=== PATIENT | male | born 1985 | race Caucasian/White ===

== ENCOUNTER 2020-03-22 20:46 | Inpatient (IN) | payer OTHER, MEDICAID, SELFPAY ==
[~2020-03-22] VITALS: Ht 185.4 cm; Wt 188.2 kg
[~2020-03-22 20:46] MED LIST: GABA-531 PO; METO50TA7 PO; METO5TAB86 PO; OMEP40CA13 PO; PHE25 PO; PRED20TA PO; RIVA15TA PO; SAN100 PO; TRAM50TA92 PO
[2020-03-22 21:17] VITALS: BP_SYST 197
[2020-03-22] MEDS ORDERED: ASPIRIN 81 MG TABLET(ECOTRIN) PO ONE (21:30)
[2020-03-22] MEDS ORDERED: METOPROLOL TARTRATE 5 MG/5 ML VIAL IVP ONE ×3 (21:30→23:30)
[2020-03-22 21:45] LABS: BASOPHILS % (AUTO) 0.3 % (0.0-2.0); EOSINOPHILS % (AUTO) 0.2 % (0.0-4.0); HEMATOCRIT 35.9 % (36-54); HEMOGLOBIN 11.2 g/dL (14.0-18.0); LYMPHOCYTES # (AUTO) 1.1 K/uL (1.0-5.5); LYMPHOCYTES % (AUTO) 9.3 % (20.5-51.5); MEAN CORPUSCULAR HEMOGLOBIN 23 pg (27-31); MEAN CORPUSCULAR HGB CONC 31 % (32-36); MEAN CORPUSCULAR VOLUME 73 fL (79.0-98.0); MONOCYTES # (AUTO) 0.9 K/uL (0.0-1.0); MONOCYTES % (AUTO) 7.7 % (1.7-9.3); NEUTROPHILS # (AUTO) 9.9 K/uL (1.8-7.7); NEUTROPHILS % (AUTO) 82.5 % (40.0-70.0); PLATELET COUNT (AUTO) 350 K/uL (130-430); RED CELL DISTRIBUTION WIDTH 18.6 % (9.0-15.0)
[2020-03-22 21:51] LABS: CALCIUM 8.8 mg/dL (8.4-11.0); CREATININE 1.29 mg/dL (0.55-1.30); POTASSIUM 4.4 mmol/L (3.5-5.1)
[2020-03-22 22:09] LABS: ALBUMIN 3.5 g/dL (3.4-4.8); BILIRUBIN,DIRECT 0.5 mg/dL (0.0-0.3); TOTAL BILIRUBIN 0.6 mg/dL (0.0-1.0)
[2020-03-23] MEDS ORDERED: HEPARIN SODIUM,PORCINE 3000 UNITS/0.6 ML BOLUS IVP PRN (00:15)
[2020-03-23] MEDS ORDERED: HEPARIN 25,000 UNITS in 250 ML PREMIX IV PRN (00:15)
[2020-03-23] MEDS ORDERED: HEPARIN SODIUM,PORCINE 2000 UNITS/0.4 ML BOLUS IVP PRN (00:15)
[2020-03-23] MEDS ORDERED: NITROGLYCERIN 0.4 MG TAB.SUBL SL ONE ×2 (00:58→01:00)
[2020-03-23] MEDS ORDERED: cycloSPORINE 100 MG CAPSULE PO SCH (09:00)
[2020-03-23] MEDS ORDERED: OMEPRAZOLE Non-Formulary 20 MG CAPSULE.DR PO SCH (09:00)
[2020-03-23 09:10] LABS: PROTHROMBIN TIME 10.2 SECS (9.5-12.5)
[2020-03-23] MEDS ORDERED: PANTOPRAZOLE SODIUM 40 MG TAB ONE (09:31)
[2020-03-23] MEDS ORDERED: CYCLOSPORINE MODIFIED 50 MG PO SCH (09:45)
[2020-03-23] MEDS: predniSONE 20 MG TABLET PO SCH (10:45)
[2020-03-23] MEDS: PANTOPRAZOLE SODIUM 40 MG TAB PO SCH (10:45)
[2020-03-23] MEDS: CYCLOSPORINE MODIFIED 50 MG PO SCH (10:46)
[2020-03-23] MEDS ORDERED: HYDROcodone/ACETAMIN 5-325 MG TAB (NORCO/ VICODIN) PO PRN (11:00)
[2020-03-23] MEDS ORDERED: NALOXONE HCL 0.4 MG/ML AMP (NARCAN) IVP PRN (11:00)
[2020-03-23] MEDS ORDERED: HYDROcodone/ACETAMIN 5-325 MG TAB (NORCO/ VICODIN) ONE (11:27)
[2020-03-23] MEDS: METOPROLOL SUCCINATE 50 MG TAB.SR.24H (TOPROL XL) PO SCH (13:36)
[2020-03-23] MEDS ORDERED: GABAPENTIN 300 MG CAPSULE ONE (14:30)
[2020-03-23] MEDS: GABAPENTIN 300 MG CAPSULE PO SCH ×2 (14:35→22:32)
[2020-03-23] MEDS ORDERED: METOPROLOL TARTRATE 50 MG TABLET PO ONE (14:45)
[2020-03-23] MEDS ORDERED: METOPROLOL TARTRATE 25 MG TABLET ONE (15:13)
[2020-03-23] MEDS ORDERED: IBUPROFEN 800 MG TABLET ONE (15:42)
[2020-03-23] MEDS ORDERED: *HEPARIN PER PHARMACY XX PRN (23:45)
[2020-03-24 04:35] LABS: PROTHROMBIN TIME 10.2 SECS (9.5-12.5)
[2020-03-24] MEDS: GABAPENTIN 300 MG CAPSULE PO SCH ×3 (06:00→21:56)
[2020-03-24] MEDS ORDERED: LIALDA PO (06:08)
[2020-03-24] MEDS ORDERED: IBUPROFEN 400 MG TABLET PO PRN (06:30)
[2020-03-24] MEDS ORDERED: DILTIAZEM HCL 125 MG/25 ML VIAL IV ONE ×2 (06:44→08:38)
[2020-03-24 07:02] LABS: BASOPHILS # (AUTO) 0.1 K/uL (0.0-0.2); BASOPHILS % (AUTO) 0.8 % (0.0-2.0); EOSINOPHILS % (AUTO) 0.2 % (0.0-4.0); HEMATOCRIT 39.3 % (36-54); HEMOGLOBIN 12.1 g/dL (14.0-18.0); LYMPHOCYTES % (AUTO) 25.9 % (20.5-51.5); MEAN CORPUSCULAR HEMOGLOBIN 23 pg (27-31); MEAN CORPUSCULAR HGB CONC 31 % (32-36); MEAN CORPUSCULAR VOLUME 74 fL (79.0-98.0); MONOCYTES # (AUTO) 1.1 K/uL (0.0-1.0); MONOCYTES % (AUTO) 9.7 % (1.7-9.3); NEUTROPHILS # (AUTO) 7.5 K/uL (1.8-7.7); NEUTROPHILS % (AUTO) 63.4 % (40.0-70.0); PLATELET COUNT (AUTO) 416 K/uL (130-430); RED BLOOD CELL COUNT(AUTO) 5.35 MIL/uL (4.2-6.2); RED CELL DISTRIBUTION WIDTH 18.8 % (9.0-15.0); WHITE BLOOD COUNT (AUTO) 11.8 K/uL (4.8-10.8)
[2020-03-24 07:53] LABS: ALBUMIN 3.6 g/dL (3.4-4.8); CALCIUM 9.2 mg/dL (8.4-11.0); CREATININE 1.25 mg/dL (0.55-1.30); POTASSIUM 3.9 mmol/L (3.5-5.1)
[2020-03-24] MEDS: CYCLOSPORINE MODIFIED 100 MG PO SCH ×2 (08:47→21:45)
[2020-03-24] MEDS ORDERED: predniSONE 20 MG TABLET ONE (08:49)
[2020-03-24] MEDS ORDERED: PANTOPRAZOLE SODIUM 40 MG TAB ONE (08:50)
[2020-03-24] MEDS ORDERED: METOPROLOL TARTRATE 25 MG TABLET ONE ×2 (08:51→21:53)
[2020-03-24] MEDS: *LOVENOX 1MG/KG Q12H/PHARMACY XX SCH ×2 (09:00→21:00)
[2020-03-24] MEDS: METOPROLOL SUCCINATE 50 MG TAB.SR.24H (TOPROL XL) PO SCH (09:08)
[2020-03-24] MEDS: CYCLOSPORINE MODIFIED 50 MG PO SCH ×2 (09:08→21:46)
[2020-03-24] MEDS: PANTOPRAZOLE SODIUM 40 MG TAB PO SCH (09:08)
[2020-03-24] MEDS: predniSONE 20 MG TABLET PO SCH (09:08)
[2020-03-24] MEDS ORDERED: MORPHINE 2 MG/ML INJ. SYRINGE ONE ×2 (09:15→22:00)
[2020-03-24] MEDS: MORPHINE 2 MG/ML INJ. SYRINGE IVP PRN ×2 (09:32→22:02)
[2020-03-24] MEDS ORDERED: METOPROLOL TARTRATE 25 MG TABLET PO ONE (10:30)
[2020-03-24] MEDS ORDERED: ENOXAPARIN SODIUM 60 MG/0.6 ML SYRINGE SUBCUT ONE (12:30)
[2020-03-24] MEDS ORDERED: AMIODARONE HCL 200 MG TABLET ONE (12:34)
[2020-03-24] MEDS ORDERED: AMIODARONE HCL 200 MG TABLET PO ONE (13:00)
[2020-03-24] MEDS: AMIODARONE HCL 200 MG TABLET PO SCH (21:43)
[2020-03-24] MEDS: ENOXAPARIN SODIUM 60 MG/0.6 ML SYRINGE SUBCUT SCH (21:45)
[2020-03-24] MEDS: METOPROLOL TARTRATE 25 MG TABLET PO SCH (21:56)
[2020-03-25] MEDS ORDERED: MORPHINE 2 MG/ML INJ. SYRINGE ONE (03:23)
[2020-03-25] MEDS: MORPHINE 2 MG/ML INJ. SYRINGE IVP PRN (03:37)
[2020-03-25] MEDS: AMIODARONE HCL 200 MG TABLET PO SCH (06:39)
[2020-03-25] MEDS: GABAPENTIN 300 MG CAPSULE PO SCH (07:35)
[2020-03-25] MEDS ORDERED: predniSONE 20 MG TABLET ONE (09:20)
[2020-03-25] MEDS ORDERED: METOPROLOL TARTRATE 25 MG TABLET ONE (09:20)
[2020-03-25] MEDS ORDERED: ENOXAPARIN SODIUM 120 MG/0.8 ML SYRINGE ONE (09:22)
[2020-03-25] MEDS ORDERED: ENOXAPARIN SODIUM 60 MG/0.6 ML SYRINGE ONE (09:22)
[2020-03-25] MEDS: predniSONE 20 MG TABLET PO SCH (09:48)
[2020-03-25] MEDS: CYCLOSPORINE MODIFIED 100 MG PO SCH (09:50)
[2020-03-25] MEDS: CYCLOSPORINE MODIFIED 50 MG PO SCH (09:50)
[2020-03-25] MEDS: METOPROLOL TARTRATE 25 MG TABLET PO SCH (09:50)
[2020-03-25] MEDS: ENOXAPARIN SODIUM 60 MG/0.6 ML SYRINGE SUBCUT SCH (09:51)
[2020-03-25] MEDS ORDERED: PANTOPRAZOLE SODIUM 40 MG TAB ONE (10:00)
[2020-03-25] MEDS: PANTOPRAZOLE SODIUM 40 MG TAB PO SCH (10:04)
[2020-03-25 12:01] VITALS: BP_SYST 169
[2020-03-25] MEDS ORDERED: AMI200 PO (12:17)
[2020-03-25] MEDS: METOPROLOL SUCCINATE 50 MG TAB.SR.24H (TOPROL XL) PO SCH (12:22)
[2020-03-25 12:30] VITALS: BP_SYST 147
[2020-03-25] MEDS ORDERED: AMIODARONE HCL 200 MG TABLET PO SCH (21:00)
== END 2020-03-25 12:30 | disposition home or self-care (01) | DRG 309 ==
LOC: SED 20:46 → SIC 23:44 → STU 03-25 09:38 → SIC 03-25 09:45
PROVIDERS: ADMIT Internal Medicine Hospice and Palliative Medicine; ATTEND Internal Medicine Hospice and Palliative Medicine
DX: I48.0 Paroxysmal atrial fibrillation (principal); K51.90 Ulcerative colitis, unspecified, without complications; Z68.43 Body mass index [BMI] 50.0-59.9, adult; E66.01 Morbid (severe) obesity due to excess calories; K75.4 Autoimmune hepatitis; I10 Essential (primary) hypertension; G89.29 Other chronic pain; Z20.828 Contact with and (suspected) exposure to other viral communicable diseases; K76.9 Liver disease, unspecified; Z79.01 Long term (current) use of anticoagulants; Z82.49 Family history of ischemic heart disease and other diseases of the circulatory system; Z85.528 Personal history of other malignant neoplasm of kidney; Z90.49 Acquired absence of other specified parts of digestive tract
CPT/HCPCS: 36415; 71045; 80048; 80053; 80076; 83880; 84484; 85025; 85610-TC; 85730-TC; 87081; 93005; 93306; 96374; 96375; 99291; J1644; J1650; J2270; J3490; J7060; J7512